=== PATIENT | male | born 1960 | race American Indian/Alaskan Native ===

== ENCOUNTER 2019-10-21 07:49 | Inpatient (IN) | payer OTHER ==
[2019-10-21 08:11] VITALS: BMI 20.6
--- NOTE | 2019-10-21 08:11 | PDOC ---
History of Present Illness - General Chief Complaint: Abnormal Lab Results (Outside) Stated Complaint: SENT BY PCP FOR ABDNORMAL LABS History Source: Patient, Old Records, Primary Care Provider Exam Limitations: No Limitations - History of Present Illness Initial Comments: 10/21/19 08:09 Sam Fay is a 59M with PMH ESRD sent to [facility] by Dr. Kan for hemodialysis planning. Got call from Dr. Kan this morning regarding patient. Has history of ESRD with worsening creatinine, eGFR 5, latest Cr 8.8. Sent to [facility] ED for worsening renal function and admission for Portacath placement/emergency dialysis. Dr. Kebede aware of patient, scheduled for placement later today. Patient denies any recent illness or other symptoms. No chest pain, SOB, cough, fever, chills, N/V, diarrhea, abd pain, SOB. Tolerating PO, vegetarian diet. Normal urine output. Meds: amlodipine 10mg, atenolol 25mg, calcitriol PSH: none Denies alcohol/drug/tobacco use. Past History - Medical History Allergies/Adverse Reactions: Allergies Allergy/AdvReac Type Severity Reaction Status Date / Time terazosin [From Hytrin] AdvReac Severe heart Verified 10/06/19 17:25 stopped Home Medications: Ambulatory Orders Amlodipine Besylate [Norvasc -] 1 tablet PO DAILY 10/06/19 Atenolol [Tenormin -] 25 mg PO DAILY 10/06/19 Calcium Acetate [Phoslo -] 1 cap PO BID 10/06/19 Sodium Bicarbonate - 1 tablet PO BID 10/06/19 Anemia: No Asthma: No Cancer: No Cardiac Disorders: No CVA: No COPD: No CHF: No Dementia: No Diabetes: No GI Disorders: No Disorders: No HTN: Yes Hypercholesterolemia: No Liver Disease: No Seizures: No Thyroid Disease: No Other medical history: renal problem - Surgical History Cholecystectomy: No Lung Surgery: No - Immunization History Immunization Up to Date: No - Psycho-Social/Smoking History Smoking History: Never smoked Have you smoked in the past 12 months: No Information on smoking cessation initiated: No - Substance Abuse Hx (Audit-C & DAST Scrn) How often the patient has a drink containing alcohol: Never Score: In Men: 4 or > Positive; In Women: 3 or > Positive: 0 Screen Result (Pos requires Nsg. Audit-10AR): Negative In the last yr the pt used illegal drug/Rx for NonMed reason: No Score: Yes response is considered Positive: 0 Screen Result (Positive result requires Nsg. DAST-10): Negative Review of Systems - Review of Systems Able to Perform ROS?: Yes Constitutional: No: Symptoms Reported HEENTM: No: Symptoms Reported Respiratory: No: Symptoms reported Cardiac (ROS): No: Symptoms Reported ABD/GI: No: Symptoms Reported : No: Symptoms Reported Musculoskeletal: No: Symptoms Reported Integumentary: No: Symptoms Reported Neurological: No: Symptoms reported Endocrine: No: Symptoms Reported Hematologic/Lymphatic: No: Symptoms Reported All Other Systems: Reviewed and Negative *Physical Exam - Vital Signs Last Vital Signs Temp Pulse Resp BP Pulse Ox 98.3 F 56 L 16 161/88 100 10/21/19 07:54 10/21/19 07:54 10/21/19 07:54 10/21/19 07:54 10/21/19 07:54 - Physical Exam General Appearance: Yes: Nourished, Appropriately Dressed, Thin, Other (in good spirits, in NAD). No: Apparent Distress HEENT: positive: EOMI, IZA, Normal Voice, Symmetrical, Pharynx Normal. negative: Scleral Icterus (R), Scleral Icterus (L), Pharyngeal Erythema, Tonsillar Exudate, Tonsillar Erythema Neck: positive: Trachea midline, Normal Thyroid, Supple. negative: Tender, Rigid, Lymphadenopathy (R), Lymphadenopathy (L), Tender lateral, Tender midline Respiratory/Chest: positive: Lungs Clear, Normal Breath Sounds. negative: Chest Tender, Respiratory Distress, Accessory Muscle Use, Crackles, Rales, Rhonchi, Stridor, Wheezing Cardiovascular: positive: Regular Rhythm, Regular Rate. negative: Murmur Gastrointestinal/Abdominal: positive: Normal Bowel Sounds, Flat, Soft. negative: Tender, Organomegaly, Pulsatile Mass, Guarding, Rebound Musculoskeletal: positive: Normal Inspection. negative: CVA Tenderness, Decreased Range of Motion Extremity: positive: Normal Capillary Refill, Normal Inspection, Normal Range of Motion, Pelvis Stable. negative: Tender, Pedal Edema, Swelling, Calf Tenderness Integumentary: positive: Normal Color, Dry, Warm Neurologic: positive: hygiene teacher II-XII NML intact, Fully Oriented, Alert, Normal Mood/Affect, Normal Response, Motor Strength 5/5 ED Treatment Course - LABORATORY CBC & Chemistry Diagram: 10/21/19 09:00 10/21/19 09:00 Medical Decision Making - Medical Decision Making 10/21/19 08:51 Patient has PMH ESRd with worsening Cr >8.8, HTN, here for Portacath placement and HD. Asymptomatic. VSS. Getting pre-op CBC/CMP/Coags/T&S/ECG/CXR for admission. Will correct electrolyte abnormalities PRN and admit for surgical planning. 10/21/19 08:54 CXR no gross pathology. ECG sinus bradycardia with HR 55, Qtc 403, no PAZ/D or TWI, no peaked T waves. 10/21/19 09:40 Labs notable for: - Hgb 8.7 with MCV 61, history ESRD, asymptomatic - Coags WNL - Cr 9.9, last known 8.8 10/21/19 10:29 Patient eligible for admission to Med/Surg, patient of Dr. Avila, admits to [facility] service. Calling office now. 10/21/19 11:28 Attending admitted patient to [facility] service. Dr. Kan placed orders and Kebede consult. Discharge - Discharge Information Problems reviewed: Yes Clinical Impression/Diagnosis: ESRD (end stage renal disease), Admission for dialysis and dialysis catheter care Condition: Good - Admission Yes - Follow up/Referral - Patient Discharge Instructions - Post Discharge Activity
--- NOTE | 2019-10-21 08:33 | PDOC ---
Attending Attestation - Resident Resident Name: Rock Freeman - ED Attending Attestation I have performed the following: I have examined & evaluated the patient, The case was reviewed & discussed with the resident, I agree w/resident's findings & plan, Exceptions are as noted - HPI HPI: 10/21/19 09:01 59y M hx of HTN, ESRD presents for hemodialysis - the patient is having worsening creatinine so was sent for evaluation and possible emergency dialysis and permcath placement- his creatinine has increased to 8.8. The patient deine sany complaints including leg swelling, sob, hernández, cp, n/v. Pt without complaint of dysuria. - Physicial Exam PE: 10/21/19 09:23 GENERAL: The patient is awake, alert, and fully oriented, Nontoxic - in no acute distress. HEAD: Normocephalic, atraumatic. EYES: extraocular movements intact, sclera anicteric, conjunctiva clear. ENT: Normal voice, Moist mucous membranes. NECK: Normal range of motion, supple LUNGS: Breath sounds equal, clear to auscultation bilaterally. No wheezes, no rhonchi, no rales. HEART: Regular rate and rhythm, normal S1 and S2 without murmur, rub or gallop. ABDOMEN: Soft, nontender, No guarding, no rebound. No CVA tenderness EXTREMITIES: Normal range of motion, no edema. NEUROLOGICAL: No facial assymetry, Normal speech, PSYCH: Normal mood, normal affect. SKIN: Warm, Dry, normal turgor, - Medical Decision Making 10/21/19 09:23 will ck labs, ekg likel admission 10/21/19 11:10 Patient's creatinine is elevated to 9.9 potassium is normal, discussed with Dr. Whitney Rivers will admit for further management. Case discussed in detail with admitting physician including history, physical exam and ancillary studies. Admitting physician has assumed care for the patient, will follow all pending di agnostics and will complete the evaluation and treatment. Heart Score/ECG Review - ECG Impressions Comment:: 10/21/19 09:24 Twelve-lead EKG was performed and reviewed by me. There is normal sinus rhythm with a Rate of 55 The axis is normal. The intervals are normal. There is normal R wave progression There are no ST or T wave abnormalities Suggestive of acute ischemia Discharge - Discharge Information Problems reviewed: Yes Clinical Impression/Diagnosis: ESRD (end stage renal disease), Admission for dialysis and dialysis catheter care Condition: Good - Admission Yes - Follow up/Referral Referrals: Corby Avila MD [Primary Care Provider] - - Patient Discharge Instructions - Post Discharge Activity
[2019-10-21 09:33] LABS: BASO % 0.9 % (0-2.0); EOS % 6.7 % (0-4.5); HEMATOCRIT 27.4 % (35.4-49); HEMOGLOBIN 8.7 GM/dL (11.7-16.9); LYMPH % 12.5 % (8-40); MCHC 31.6 g/dl (32.0-35.9); MEAN CELL VOLUME 61.4 fl (80-96); MEAN PLT VOLUME 8.4 fl (7.5-11.1); MONO % 8.9 % (3.8-10.2); PLATELET COUNT 196 K/MM3 (134-434); RBC 4.47 M/mm3 (4.00-5.60); RDW 15.4 % (11.9-15.9); WHITE BLOOD COUNT 8.4 K/mm3 (4.0-10.0)
[2019-10-21 09:36] LABS: MCH 19.4 pg (25.7-33.7)
[2019-10-21 09:58] LABS: MAGNESIUM 2.3 mg/dL (1.8-2.4); PHOSPHOROUS 4.2 mg/dL (2.5-4.9)
[2019-10-21 10:04] LABS: INR 0.9 (0.83-1.09); PROTHROMBIN TIME (PATIENT) 10.6 SEC (9.7-13.0)
[2019-10-21 10:05] LABS: ALBUMIN 4.2 g/dl (3.4-5.0); BILIRUBIN,TOTAL 0.5 mg/dL (0.2-1); BLOOD UREA NITROGEN 59.5 mg/dL (7-18); CALCIUM 9.4 mg/dL (8.5-10.1); POTASSIUM 4.7 mmol/L (3.5-5.1); TOT PROT 8.1 g/dl (6.4-8.2)
[2019-10-21 10:06] LABS: ACTIVATED PTT 24.3 SECONDS (25.2-36.5)
[2019-10-21 10:29] LABS: CREATININE 9.9 mg/dL (0.55-1.3)
[2019-10-21] MEDS ORDERED: SODIUM CHLORIDE 250 ML IV PRN ×3 (10:45→17:46)
[2019-10-21] MEDS ORDERED: EPOETIN ALFA 10,000 UNIT/1 ML VIAL IVPUSH ONE ×2 (10:45→16:55)
[2019-10-21 10:47] LABS: ANISOCYTOSIS 2+; PLATELET ESTIMATE NORMAL
--- NOTE | 2019-10-21 11:32 | HP ---
Admitting History and Physical - Primary Care Physician PCP: Corby Avila - Admission Chief Complaint: worsening renal function History of Present Illness: - History of Present Illness Initial Comments: 10/21/19 08:09 Sam Fay is a 59M with H ESRD sent to [facility] by Dr. Kan for hemodialysis planning. Got call from Dr. Kan this morning regarding patient. Has history of ESRD with worsening creatinine, eGFR 5, latest Cr 8.8. Sent to [facility] ED for worsening renal function and admission for Portacath placement/emergency dialysis. Dr. Kebede aware of patient, scheduled for placement later today. Patient denies any recent illness or other symptoms. No chest pain, SOB, cough, fever, chills, N/V, diarrhea, abd pain, SOB. Tolerating PO, vegetarian diet. Normal urine output. Meds: amlodipine 10mg, atenolol 25mg, calcitriol PSH: none Denies alcohol/drug/tobacco use. Pt examined by me in the ER at bedside Pt being followed by Dr Yogi Kan Nephrology for renal function Denies SOB, loss of appetite, fatigue He had chest pain on and off and was sent to do outpatient echo and stress test here at [facility] last week by his PMD History Source: Patient Limitations to Obtaining History: No Limitations - Past Medical History Cardiovascular: Yes: HTN Renal/: Yes: Renal Failure - Smoking History Smoking history: Never smoked Have you smoked in the past 12 months: No Home Medications - Allergies Allergies/Adverse Reactions: Allergies Allergy/AdvReac Type Severity Reaction Status Date / Time terazosin [From Hytrin] AdvReac Severe heart Verified 10/21/19 12:19 stopped - Home Medications Home Medications: Ambulatory Orders Amlodipine Besylate [Norvasc -] 1 tablet PO DAILY 10/06/19 Atenolol [Tenormin -] 25 mg PO DAILY 10/06/19 Calcium Acetate [Phoslo -] 1 cap PO BID 10/06/19 Sodium Bicarbonate - 1 tablet PO BID 10/06/19 Calcitriol [Rocaltrol -] 0.25 mcg PO DAILY 10/21/19 Sodium Polystyrene Sulfonate 454 gm PO ASDIR 10/21/19 Family Medical History Family History: Unremarkable Review of Systems - Review of Systems Constitutional: denies: Chills (-), Fever Cardiovascular: denies: Chest Pain, Edema, Palpitations, Shortness of Breath Gastrointestinal: denies: Abdominal Pain Physical Examination Vital Signs: Vital Signs Temperature 98.3 F 10/21/19 07:54 Pulse Rate 56 L 10/21/19 07:54 Respiratory Rate 16 10/21/19 07:54 Blood Pressure 161/88 10/21/19 07:54 O2 Sat by Pulse Oximetry (%) 100 10/21/19 07:54 Constitutional: Yes: No Distress, Calm Cardiovascular: Yes: Regular Rate and Rhythm Respiratory: Yes: CTA Bilaterally Gastrointestinal: Yes: Normal Bowel Sounds, Soft. No: Tenderness Edema: No Labs: CBC, BMP 10/21/19 09:00 10/21/19 09:00 Imaging - Results Chest X-ray: Image Reviewed (clear) Problem List - Problems (1) HTN (hypertension) Code(s): I10 - ESSENTIAL (PRIMARY) HYPERTENSION (2) Admission for dialysis and dialysis catheter care Code(s): Z99.2 - DEPENDENCE ON RENAL DIALYSIS (3) ESRD (end stage renal disease) Code(s): N18.6 - END STAGE RENAL DISEASE Assessment/Plan keep NPO Spoke with Vascular Stress test -- shows ST depressions Pt is assymptomatic Cardiology consulted I spoke with Cardiology-- ok to proceed with planned permacath placement and initiation of dialysis, may need cardiac cath in the near future
--- NOTE | 2019-10-21 13:36 | CONSULT ---
- Consultation REQUESTING PROVIDER: CONSULT REQUEST: We have been asked to surgically evaluate this patient for renal failure. PCP:Whitney Sanhcez HISTORY OF PRESENT ILLNESS: The patient is a 59 yo male who presented to the ER as per request from Dr. Lucius Calix for an elevation in his BUN/CRET. He denies any SOB. The patient was seen by Dr. Kebede in the office for the placement to schedule an elective placement of a fistula. His renal fnction worsened on repeat labs last week and he is here today for PC placement. The pt deneis any SOB/fevers. He did have an episode of non-sustained CP/ 1 and a half weeks ago and had a cardiac workup ordered by his PMD. A stress test and echo were completed last week at [facility]. PMHx: HTN, renal failure PSHx: denies Home Medications Medication Instructions Recorded Amlodipine Besylate [Norvasc -] 1 tablet PO DAILY 10/06/19 Atenolol [Tenormin -] 25 mg PO DAILY 10/06/19 Calcium Acetate [Phoslo -] 1 cap PO BID 10/06/19 Sodium Bicarbonate - 1 tablet PO BID 10/06/19 Calcitriol [Rocaltrol -] 0.25 mcg PO DAILY 10/21/19 Sodium Polystyrene Sulfonate 454 gm PO ASDIR 10/21/19 Allergies Allergy/AdvReac Type Severity Reaction Status Date / Time terazosin [From Hytrin] AdvReac Severe heart Verified 10/21/19 12:19 stopped REVIEW OF SYSTEMS: CONSTITUTIONAL: Absent: fever, chills CARDIOVASCULAR: Absent: chest pain, syncope, palpitations RESPIRATORY: Absent: cough, shortness of breath GASTROINTESTINAL: Absent: abdominal pain, abdominal distension GENITOURINARY: Absent: dysuria, hematuria HEMATOLOGIC/IMMUNOLOGIC: Absent: easy bleeding, easy bruising, lymphadenopathy NEUROLOGIC: Absent: headache, seizure PHYSICAL EXAM: GENERAL: Awake, alert, and fully oriented, in no acute distress. NECK: no carotid buits LUNGS: Clear to auscultation bilat anteriorly. HEART: Regular rate and rhythm. No murmurs ABDOMEN: Soft, nontender, not distended. LOWER EXTREMITIES: 2+DP pulses, warm, well-perfused. No calf tenderness. No peripheral edema. NEUROLOGICAL: Normal speech, gait not observed. 5/5 dorsi/plantar flexion b/l. Photography Intern strength equal b/l PSYCH: Cooperative. Good eye contact. Appropriate mood and affect. Vital Signs Temperature 98.3 F 10/21/19 07:54 Pulse Rate 56 L 10/21/19 07:54 Respiratory Rate 16 10/21/19 07:54 Blood Pressure 161/88 10/21/19 07:54 O2 Sat by Pulse Oximetry (%) 100 10/21/19 07:54 Lab Results WBC 8.4 K/mm3 (4.0-10.0) 10/21/19 09:00 RBC 4.47 M/mm3 (4.00-5.60) 10/21/19 09:00 Hgb 8.7 GM/dL (11.7-16.9) L 10/21/19 09:00 Hct 27.4 % (35.4-49) L 10/21/19 09:00 MCV 61.4 fl (80-96) L 10/21/19 09:00 MCHC 31.6 g/dl (32.0-35.9) L 10/21/19 09:00 RDW 15.4 % (11.9-15.9) 10/21/19 09:00 Plt Count 196 K/MM3 (134-434) 10/21/19 09:00 INR 0.90 (0.83-1.09) 10/21/19 09:00 Sodium 131 mmol/L (136-145) L 10/21/19 09:00 Potassium 4.7 mmol/L (3.5-5.1) 10/21/19 09:00 Chloride 95 mmol/L (98-107) L 10/21/19 09:00 Carbon Dioxide 24 mmol/L (21-32) 10/21/19 09:00 Anion Gap 12 MMOL/L (8-16) 10/21/19 09:00 BUN 59.5 mg/dL (7-18) H 10/21/19 09:00 Creatinine 9.9 mg/dL (0.55-1.3) H* 10/21/19 09:00 Random Glucose 89 mg/dL (74-106) 10/21/19 09:00 Calcium 9.4 mg/dL (8.5-10.1) 10/21/19 09:00 Blood Type B POSITIVE 10/21/19 09:05 Antibody Screen Negative 10/21/19 09:05 CXR: no acute pathology Problem List - Problems (1) ESRD (end stage renal disease) Assessment/Plan: Plan for possible PC today, pt remains npo Spoke with Dr. Whitney Rivers regarding clearance for the OR today. He had a stress test last week which revealed normal myocardial perfusion with LVEF 70- %exercise portion with ischemic ST depression. Dr. Engel to see pt/review studies and clear pt for permacath placement today. D/w Dr. Kebede Problems reviewed: Yes Code(s): N18.6 - END STAGE RENAL DISEASE
[2019-10-21] MEDS ORDERED: LIDOCAINE HCL 1%, 10 MG/ML (20ML VIAL) ONE (14:48)
[2019-10-21] MEDS ORDERED: PROPOFOL 20 ML ONE (15:01)
[2019-10-21] MEDS ORDERED: MIDAZOLAM HCL 2 MG/2 ML SINGLE DOSE VIAL ONE (15:01)
--- NOTE | 2019-10-21 15:02 | CON.CARD ---
Consult Consult Specialty:: cardiology Reason for Consultation:: + stress test - History of Present Illness History of Present Illness: Mr. Alex is a 59yo man with PMhx of HTN, ESRD, ECHO 08/29 with normal LVEF, moderate MR and TR, now presents for hemodialysis - the patient is having worsening creatinine so was sent for evaluation and possible emergency dialysis and permcath placement- his creatinine has increased to 8.8. The patient deines any complaints including leg swelling, sob, hernández, cp, n/v. Pt without complaint of dysuria. - History Source History Provided By: Medical Record Limitations to Obtaining History: No Limitations - Past Medical History Cardio/Vascular: Yes: CHF (diastolic), HTN - Smoking History Smoking history: Never smoked Have you smoked in the past 12 months: No Home Medications - Allergies Allergies/Adverse Reactions: Allergies Allergy/AdvReac Type Severity Reaction Status Date / Time terazosin [From Hytrin] AdvReac Severe heart Verified 10/21/19 12:19 stopped - Home Medications Home Medications: Ambulatory Orders Amlodipine Besylate [Norvasc -] 1 tablet PO DAILY 10/06/19 Atenolol [Tenormin -] 25 mg PO DAILY 10/06/19 Calcium Acetate [Phoslo -] 1 cap PO BID 10/06/19 Sodium Bicarbonate - 1 tablet PO BID 10/06/19 Calcitriol [Rocaltrol -] 0.25 mcg PO DAILY 10/21/19 Sodium Polystyrene Sulfonate 454 gm PO ASDIR 10/21/19 - Risk Factors Known Risk Factors: Yes: Age, Gender, Hypertension Vital Signs: Vital Signs Temperature 98.3 F 10/21/19 07:54 Pulse Rate 56 L 10/21/19 07:54 Respiratory Rate 16 10/21/19 07:54 Blood Pressure 161/88 10/21/19 07:54 O2 Sat by Pulse Oximetry (%) 100 10/21/19 07:54 - Other Data Labs, Other Data: CBC, BMP 10/21/19 09:00 10/21/19 09:00 INR, PTT INR 0.90 (0.83-1.09) 10/21/19 09:00 Assessment/Plan ESRD HTN microcytic anemia ECHO: normal LVEF; mild-moderate MR and TR Plan: Pt with Lexiscan MIBI 08/2019: mild ST depression; nuclear images showed normal perfusion, and no transient dilatation. Pt may undergo Permacath placement. F/u Lipids, TSH. ASA 81 mg daily. Continue atenolol, amlodipine, Imdur. Serial BP checks. COVID pending.
[2019-10-21] MEDS ORDERED: ceFAZolin SODIUM 1 GM VIAL IVPB ONE (15:40)
[2019-10-21] MEDS ORDERED: ceFAZolin SODIUM 1 GM VIAL ONE (15:42)
[2019-10-21] MEDS ORDERED: LIDOCAINE HCL 1%, 10 MG/ML (20ML VIAL) NR ONE (15:46)
--- NOTE | 2019-10-21 16:08 | OP ---
Operative Note - Note: Operative Date: 10/21/19 Pre-Operative Diagnosis: ESRD Operation: Insertion of permacath Post-Operative Diagnosis: Same as Pre-op Surgeon: Aaron Kebede Anesthesia: MAC Estimated Blood Loss (mls): 20 Operative Report Dictated: Yes
[2019-10-21] MEDS ORDERED: CALCIUM ACETATE 667 MG CAPSULE (FP) PO SCH (17:30)
--- NOTE | 2019-10-21 17:45 | CON.NEP ---
Consult Consult Specialty:: Nephrology Referred by:: ED Reason for Consultation:: Progressie CKD - History of Present Illness Chief Complaint: Worsening renal function History of Present Illness: This is a 59 year old [place] male with history of CKD stage 5, hypertension, DM2 not currently on meds, CKD related Anemia, hyperkalemia who I sent in from the office for worsening renal function and the need to start dialysis. Pt seen and examined in the PACU after tunneled HD catheter placement. Pt is awake and alert and offers no acute complaints. Pt did have fatigue and mild anxorexia at home. No N/V/D. Still making urine. Outpatient Cr was 8.8, and eGFR 5.5. Denies any sob, cp, fever, chills, confusion or lethargy. - History Source History Provided By: Patient Limitations to Obtaining History: No Limitations - Past Medical History Cardio/Vascular: Yes: HTN Renal/: Yes: Renal Failure - Smoking History Smoking history: Never smoked Have you smoked in the past 12 months: No Home Medications - Allergies Allergies/Adverse Reactions: Allergies Allergy/AdvReac Type Severity Reaction Status Date / Time terazosin [From Hytrin] AdvReac Severe heart Verified 10/21/19 12:19 stopped - Home Medications Home Medications: Ambulatory Orders Amlodipine Besylate [Norvasc -] 1 tablet PO DAILY 10/06/19 Atenolol [Tenormin -] 25 mg PO DAILY 10/06/19 Calcium Acetate [Phoslo -] 1 cap PO BID 10/06/19 Sodium Bicarbonate - 1 tablet PO BID 10/06/19 Calcitriol [Rocaltrol -] 0.25 mcg PO DAILY 10/21/19 Sodium Polystyrene Sulfonate 454 gm PO ASDIR 10/21/19 Family Medical History Family History: Unremarkable Review of Systems - Review of Systems Constitutional: reports: No Symptoms Eyes: reports: No Symptoms HENT: reports: No Symptoms Neck: reports: No Symptoms Cardiovascular: reports: No Symptoms Respiratory: reports: No Symptoms Gastrointestinal: reports: No Symptoms Genitourinary: reports: No Symptoms Musculoskeletal: reports: No Symptoms Neurological: reports: No Symptoms Endocrine: reports: No Symptoms Nephrology Consult - Height Height: 5 ft 5 in - Weight Weight: 56.245 kg - BMI Body Mass Index (BMI): 20.6 - Lab Results CBC,BMP: CBC, BMP 10/21/19 09:00 08/11/20 09:00 Anion Gap: Anion Gap Anion Gap 12 MMOL/L (8-16) 10/21/19 09:00 - Imaging Chest X-ray: Report Reviewed - Physical Examination Vital Signs: Vital Signs Temperature 98.5 F 10/21/19 16:07 Pulse Rate 52 L 10/21/19 17:00 Respiratory Rate 12 10/21/19 17:00 Blood Pressure 141/80 10/21/19 17:00 O2 Sat by Pulse Oximetry (%) 99 10/21/19 17:00 Constitutional: Yes: No Distress, Calm Eyes: Yes: Conjunctiva Clear HENT: Yes: Atraumatic Neck: Yes: Supple Cardiovascular: Yes: Regular Rate and Rhythm Respiratory: Yes: Regular, CTA Bilaterally Gastrointestinal: Yes: Soft. No: Tenderness Access for Hemodialysis: Permacath Extremities: No: Cool, Cyanosis Edema: No Neurological: Yes: Alert, Oriented. No: Asterixis Assessment/Plan 59 year old [place] male with history of CKD stage 5, hypertension, DM2 not currently on meds, CKD related Anemia, hyperkalemia who I sent in from the office for worsening renal function and the need to start dialysis. 1. CKD stage 5 now ESRD requiring dialysis 2. Hypertension 3. CKD related Anemia 4. Renal Osteodystrophy 5. Chronic hyperkalemia on potassium binding resin at home 6. Hx of DM2 not on meds currently s/p tunneled HD catheter placement. The risks and benefits of dialysis discussed with the patient and pt is agreeable to start dialysis. Will have first dialysis treatment today for 2 hours duration. 2nd tx is planned for tomorrow. Renal diet. 1.2L fluid restriction daily. Continue Calcitrol and renvela. Will give HOLDEN with dialysis for anemia Will need outpatient HD unit placement. Thank you Yogi Kan DO
[2019-10-21] MEDS: CALCIUM ACETATE 667 MG CAPSULE (FP) PO SCH (20:32)
[2019-10-21] MEDS ORDERED: SIMETHICONE 80 MG TAB.CHEW (FP) PO PRN (20:46)
[2019-10-21] MEDS: SODIUM BICARBONATE 650 MG TABLET PO SCH (21:15)
[2019-10-21] MEDS ORDERED: SODIUM BICARBONATE 650 MG TABLET PO SCH (22:00)
[2019-10-21] MEDS: ACETAMINOPHEN 500 MG TABLET (FP) PO PRN (23:55)
--- NOTE | 2019-10-22 08:06 | PN ---
Progress Note (short form) - Note Progress Note: VASCULAR SURGERY POD #1 s/p Permacath Insertion Doing well. No complaints. Denies CP, palpitations, SOB or MORALES. AVSS. Afebrile. Gen: nad Chest: Permacath dressing c/d/i. No hematoma. A/P HD per pt's schedule. Cont care as per primary team. Rec-consult surgery prn On behalf of Dr. Kebede, thank you for the opportunity to participate in your patient's care Problem List - Problems (1) Admission for dialysis and dialysis catheter care Code(s): Z99.2 - DEPENDENCE ON RENAL DIALYSIS (2) ESRD (end stage renal disease) Code(s): N18.6 - END STAGE RENAL DISEASE (3) HTN (hypertension) Code(s): I10 - ESSENTIAL (PRIMARY) HYPERTENSION
[2019-10-22] MEDS ORDERED: PT OWN MED DRAWER 7, Y5N ONE (09:13)
[2019-10-22] MEDS: CALCIUM ACETATE 667 MG CAPSULE (FP) PO SCH ×3 (09:20→17:21)
[2019-10-22] MEDS: ACETAMINOPHEN 500 MG TABLET (FP) PO PRN (09:21)
[2019-10-22] MEDS ORDERED: ATENOLOL 25 MG TABLET (FP) PO SCH (10:00)
[2019-10-22] MEDS ORDERED: ISOSORBIDE MONONITRATE 30 MG TAB.SR.24H (FP) PO SCH (10:00)
[2019-10-22] MEDS ORDERED: amLODIPine BESYLATE 10 MG TABLET (FP) PO SCH (10:00)
--- NOTE | 2019-10-22 10:46 | PN ---
Progress Note, Physician History of Present Illness: Mr. Alex is a 59yo man with PMhx of HTN, ESRD, ECHO 08/29 with normal LVEF, moderate MR and TR, now presents for hemodialysis - the patient is having worsening creatinine so was sent for evaluation and possible emergency dialysis and permcath placement- his creatinine has increased to 8.8. The patient deines any complaints including leg swelling, sob, hernández, cp, n/v. Pt without complaint of dysuria. - Current Medication List Current Medications: Active Medications Acetaminophen (Tylenol -) 1,000 mg PO Q8H PRN PRN Reason: PAIN LEVEL 4 - 6 Last Admin: 10/22/19 09:21 Dose: 1,000 mg Documented by: Amlodipine Besylate (Norvasc -) 10 mg PO DAILY [facility] Atenolol (Tenormin -) 25 mg PO DAILY [facility] Calcium Acetate (Phoslo -) 667 mg PO TIDCM [facility] Last Admin: 10/22/19 09:20 Dose: 667 mg Documented by: Sodium Chloride (Normal Saline -) 250 mls @ 3,000 mls/hr IV PRN PRN PRN Reason: Hypotension during Dialysis Stop: 10/22/19 17:46 Isosorbide Mononitrate (Imdur -) 30 mg PO DAILY [facility] Simethicone (Mylicon -) 80 mg PO TID PRN PRN Reason: GAS Last Admin: 10/22/19 09:20 Dose: 80 mg Documented by: Sodium Bicarbonate (Sodium Bicarbonate -) 650 mg PO BID [facility] Last Admin: 10/21/19 21:15 Dose: 650 mg Documented by: - Objective Vital Signs: Vital Signs Temperature 98.8 F 10/22/19 09:45 Pulse Rate 54 L 10/22/19 10:20 Respiratory Rate 18 10/22/19 10:20 Blood Pressure 135/78 10/22/19 10:20 O2 Sat by Pulse Oximetry (%) 99 10/22/19 06:42 Eyes: Yes: WNL, Conjunctiva Clear, EOM Intact HENT: Yes: WNL, Atraumatic, Normocephalic Neck: Yes: WNL, Supple, Trachea Midline Cardiovascular: Yes: WNL, Regular Rate and Rhythm Respiratory: Yes: WNL, Regular, CTA Bilaterally Gastrointestinal: Yes: WNL, Normal Bowel Sounds Genitourinary: Yes: WNL Musculoskeletal: Yes: WNL Extremities: Yes: WNL Edema: No Integumentary: Yes: WNL Neurological: Yes: WNL, Alert, Oriented ...Motor Strength: WNL Psychiatric: Yes: WNL Labs: INR, PTT INR 0.90 (0.83-1.09) 10/21/19 09:00 Assessment/Plan ESRD Stable s/p permacath placement. HTN microcytic anemia ECHO: normal LVEF; mild-moderate MR and TR Plan: Pt with Lexiscan MIBI 08/2019: mild ST depression; nuclear images showed normal perfusion, and no transient dilatation. F/u Lipids, TSH. ASA 81 mg daily. Continue atenolol, amlodipine, Imdur. Serial BP checks. COVID pending.
[2019-10-22 10:47] LABS: HEMATOCRIT 24.8 % (35.4-49); HEMOGLOBIN 7.7 GM/dL (11.7-16.9); MEAN CELL VOLUME 63.2 fl (80-96); MEAN PLT VOLUME 9.1 fl (7.5-11.1); PLATELET COUNT 130 K/MM3 (134-434); RBC 3.93 M/mm3 (4.00-5.60); RDW 15.5 % (11.9-15.9); WHITE BLOOD COUNT 12.7 K/mm3 (4.0-10.0)
--- NOTE | 2019-10-22 10:52 | PN ---
Problem List - Problems (1) HTN (hypertension) Code(s): I10 - ESSENTIAL (PRIMARY) HYPERTENSION (2) Admission for dialysis and dialysis catheter care Code(s): Z99.2 - DEPENDENCE ON RENAL DIALYSIS (3) ESRD (end stage renal disease) Code(s): N18.6 - END STAGE RENAL DISEASE
[2019-10-22 11:10] LABS: MCH 19.6 pg (25.7-33.7)
[2019-10-22 11:14] LABS: CALCIUM 8.1 mg/dL (8.5-10.1); CREATININE 6.9 mg/dL (0.55-1.3); PHOSPHOROUS 2.7 mg/dL (2.5-4.9); POTASSIUM 3.7 mmol/L (3.5-5.1)
[2019-10-22 11:48] LABS: BLOOD UREA NITROGEN 32.2 mg/dL (7-18)
--- NOTE | 2019-10-22 12:28 | PN ---
Progress Note, Physician Chief Complaint: Worsening renal function History of Present Illness: Seen and examined on dialysis. Awake and alert offers no acute complaints. has some ozzing from [facility] site overnight no chest pain, abdominal pain, fever or chills - Current Medication List Current Medications: Active Medications Acetaminophen (Tylenol -) 1,000 mg PO Q8H PRN PRN Reason: PAIN LEVEL 4 - 6 Last Admin: 10/22/19 09:21 Dose: 1,000 mg Documented by: Amlodipine Besylate (Norvasc -) 10 mg PO DAILY [facility] Atenolol (Tenormin -) 25 mg PO DAILY [facility] Calcium Acetate (Phoslo -) 667 mg PO TIDCM [facility] Last Admin: 10/22/19 09:20 Dose: 667 mg Documented by: Sodium Chloride (Normal Saline -) 250 mls @ 3,000 mls/hr IV PRN PRN PRN Reason: Hypotension during Dialysis Stop: 10/22/19 17:46 Isosorbide Mononitrate (Imdur -) 30 mg PO DAILY [facility] Simethicone (Mylicon -) 80 mg PO TID PRN PRN Reason: GAS Last Admin: 10/22/19 09:20 Dose: 80 mg Documented by: Sodium Bicarbonate (Sodium Bicarbonate -) 650 mg PO BID [facility] Last Admin: 10/21/19 21:15 Dose: 650 mg Documented by: - Objective Vital Signs: Vital Signs Temperature 98.8 F 10/22/19 09:45 Pulse Rate 62 10/22/19 11:50 Respiratory Rate 18 10/22/19 11:50 Blood Pressure 138/84 10/22/19 11:50 O2 Sat by Pulse Oximetry (%) 99 10/22/19 06:42 Constitutional: Yes: No Distress, Calm HENT: Yes: Atraumatic Neck: Yes: Supple Cardiovascular: Yes: Regular Rate and Rhythm Respiratory: Yes: Regular Genitourinary: No: Bladder Distention Extremities: No: Cyanosis Edema: No Labs: CBC, BMP 10/22/19 09:50 10/22/19 09:50 INR, PTT INR 0.90 (0.83-1.09) 10/21/19 09:00 Assessment/Plan 59 year old [place] male with history of CKD stage 5, hypertension, DM2 not currently on meds, CKD related Anemia, hyperkalemia who I sent in from the office for worsening renal function and the need to start dialysis. 1. CKD stage 5 now ESRD requiring dialysis 2. Hypertension 3. CKD related Anemia 4. Renal Osteodystrophy 5. Chronic hyperkalemia on potassium binding resin at home 6. Hx of DM2 not on meds currently Tolerated dialysis well yesterday and is currently getting his 2nd tx. Clinically stable. Will give HOLDEN with dialysis for anemia. Continue Calcitriol and phos binder with meals. Continue amlodipine and atenolol for now, once pt is on regular 3x weekly dialysis can start KAITY/ARB can discontinue potassium binder at home. Renal diet. Pt has outpatient spot at [facility]. Awaiting insurance confirmation. Thank you Yogi Kan DO
[2019-10-22] MEDS: ATENOLOL 25 MG TABLET (FP) PO SCH (13:02)
[2019-10-22] MEDS: SODIUM BICARBONATE 650 MG TABLET PO SCH ×2 (13:02→21:10)
[2019-10-22] MEDS: amLODIPine BESYLATE 10 MG TABLET (FP) PO SCH (13:02)
[2019-10-22] MEDS: ISOSORBIDE MONONITRATE 30 MG TAB.SR.24H (FP) PO SCH (13:02)
--- NOTE | 2019-10-22 13:16 | EKG ---
Test Reason : Blood Pressure : / mmHG Vent. Rate : 055 BPM Atrial Rate : 055 BPM P-R Int : 134 ms QRS Dur : 090 ms QT Int : 422 ms P-R-T Axes : 045 034 042 degrees QTc Int : 403 ms SINUS BRADYCARDIA VOLTAGE CRITERIA FOR LEFT VENTRICULAR HYPERTROPHY ABNORMAL ECG NO PREVIOUS ECGS AVAILABLE Confirmed by MD JOSH, MORELIA ([id number]) on 10/22/2019 1:16:32 PM Referred By: Confirmed By:MORELIA MORENO MD
--- NOTE | 2019-10-22 14:02 | OP ---
DATE OF OPERATION: 10/21/2019 PREOPERATIVE DIAGNOSIS: End-stage renal disease. POSTOPERATIVE DIAGNOSIS: End-stage renal disease. PROCEDURE: Insertion of permacath. SURGEON: Aaron Granados DO ANESTHESIA: Fractional. BLOOD LOSS: 20 mL. The patient is a 59-year-old male who comes in through the emergency room due to the fact that his renal function was worsening and needs initiation of dialysis and he needs a permacath. The patient was consented for the procedure, understanding all risks, benefits, and alternatives. He was then taken to the operating room. Once in the operating room, he was placed on operating table in supine manner, and the area of the right neck and chest were prepped and draped in sterile surgical manner. Prior to the procedure, patient was cleared by Cardiology and the COVID status was pending. We then went ahead and using ultrasound guidance, visualized the right internal jugular vein, and 10 mL of lidocaine 1% was injected there under ultrasound guidance. We then took our micropuncture needle and punctured the right internal jugular vein. Micropuncture wire was inserted, micropuncture sheath was inserted under fluoroscopy. We then placed a 0.035 floppy guidewire under fluoroscopy. We then injected 10 mL of lidocaine 1% above and below the clavicle. We then took an 11 blade and made a 1 cm incision at the puncture site. We then took a 15 blade and made a 1 cm incision below the clavicle. We then tunneled the permacath up to the puncture site. We then placed our breakaway sheath over the guidewire into the vein under fluoroscopy, and the cannula and guidewire were removed. Catheter was placed inside the sheath, sheath was broken away as the catheter was placed inside the vein. The neck of the catheter was nice and smooth. The tip of the catheter was located outside the right atrium. We then richelle back on each port of the catheter, and there was good flow. Heparinized saline was injected, 2000 units of IV heparin was injected into each port. A 4-0 Biosyn was used and 2 simple stitches were placed at the puncture site, 3-0 nylon used and the catheter was attached to the skin. BioPatch, Steri-Strips, 4x4, Tegaderm were placed. Patient tolerated this procedure, no complications. Patient transferred to PACU in stable condition. AARON GRANADOS DO [employer] OPERATOR/[id number]
[2019-10-23] MEDS: CALCIUM ACETATE 667 MG CAPSULE (FP) PO SCH ×2 (08:32→12:07)
[2019-10-23] MEDS ORDERED: PT OWN MED DRAWER 7, Y5N ONE (08:55)
[2019-10-23] MEDS: SODIUM BICARBONATE 650 MG TABLET PO SCH (09:21)
[2019-10-23] MEDS: ISOSORBIDE MONONITRATE 30 MG TAB.SR.24H (FP) PO SCH (09:21)
[2019-10-23] MEDS: ATENOLOL 25 MG TABLET (FP) PO SCH (09:21)
[2019-10-23] MEDS: amLODIPine BESYLATE 10 MG TABLET (FP) PO SCH (09:21)
--- NOTE | 2019-10-23 11:36 | DS ---
Physical Examination Vital Signs: Vital Signs Temperature 98.9 F 10/23/19 06:00 Pulse Rate 56 L 10/23/19 06:00 Respiratory Rate 20 10/23/19 09:00 Blood Pressure 150/86 10/23/19 06:00 O2 Sat by Pulse Oximetry (%) 95 10/23/19 09:00 Constitutional: Yes: No Distress, Calm Cardiovascular: Yes: Regular Rate and Rhythm Respiratory: Yes: CTA Bilaterally Gastrointestinal: Yes: Normal Bowel Sounds, Soft. No: Tenderness Edema: No Labs: CBC, BMP 10/22/19 09:50 10/22/19 09:50 Discharge Summary Problems reviewed: Yes Reason For Visit: ENCOUNTER FOR HEMODIALYSIS,ESRD Current Active Problems Admission for dialysis and dialysis catheter care (Acute) ESRD (end stage renal disease) (Acute) HTN (hypertension) (Acute) Hospital Course: Pt admitted for worsening renal function No SOB he has weight loss for one month , decreased appetite COVID negative Pt was dialysed after placing permacath he is new to dialysis Will be dialysed Sun- Sun- Sun stable for dc home Needs GI eval as outpatient Condition: Good - Instructions Diet, Activity, Other Instructions: stop polysterene powder and isosorbide mononitrate continue amlodipine, atenolol, phoslo, calcitriol drink Nepro daily Referrals: Corby Avila MD [Primary Care Provider] - Yogi Kan MD [Staff Physician] - Disposition: HOME - Home Medications Comprehensive Discharge Medication List: Ambulatory Orders Amlodipine Besylate [Norvasc -] 10 mg PO DAILY 10/06/19 Atenolol [Tenormin -] 25 mg PO DAILY 10/06/19 Sodium Bicarbonate - 1 tablet PO BID 10/06/19 Calcitriol [Calcitriol -] 0.25 mcg PO DAILY 10/21/19
[2019-10-23] MEDS ORDERED: CALCIUM ACETATE 667 MG CAPSULE (FP) PO ONE (12:45)
--- NOTE | 2019-10-23 13:32 | PN ---
Progress Note, Physician Chief Complaint: Worsening renal function History of Present Illness: Seen and examined on dialysis. Awake and alert, offers no acute complaints. Completed his second dialysis session without complication yesterday in the hospital. He denies any Leg swelling, shortness of breath, chest pain, abdominal pain, nausea, vomiting. For discharge today - Current Medication List Current Medications: Active Medications Acetaminophen (Tylenol -) 1,000 mg PO Q8H PRN PRN Reason: PAIN LEVEL 4 - 6 Last Admin: 10/22/19 09:21 Dose: 1,000 mg Documented by: Amlodipine Besylate (Norvasc -) 10 mg PO DAILY [facility] Last Admin: 10/23/19 09:21 Dose: 10 mg Documented by: Atenolol (Tenormin -) 25 mg PO DAILY [facility] Last Admin: 10/23/19 09:21 Dose: 25 mg Documented by: Sodium Chloride (Normal Saline -) 250 mls @ 3,000 mls/hr IV PRN PRN PRN Reason: Hypotension during Dialysis Stop: 10/22/19 17:46 Simethicone (Mylicon -) 80 mg PO TID PRN PRN Reason: GAS Last Admin: 10/22/19 09:20 Dose: 80 mg Documented by: - Objective Vital Signs: Vital Signs Temperature 98.9 F 10/23/19 06:00 Pulse Rate 56 L 10/23/19 06:00 Respiratory Rate 20 10/23/19 09:00 Blood Pressure 150/86 10/23/19 06:00 O2 Sat by Pulse Oximetry (%) 95 10/23/19 09:00 Constitutional: Yes: No Distress, Calm HENT: Yes: Atraumatic Neck: Yes: Supple Cardiovascular: Yes: Regular Rate and Rhythm Respiratory: Yes: Regular, CTA Bilaterally Gastrointestinal: Yes: Soft Edema: No Neurological: Yes: Alert, Oriented Labs: CBC, BMP 10/22/19 09:50 10/22/19 09:50 INR, PTT INR 0.90 (0.83-1.09) 10/21/19 09:00 Assessment/Plan 59 year old [place] male with history of CKD stage 5, hypertension, DM2 not currently on meds, CKD related Anemia, hyperkalemia who I sent in from the office for worsening renal function and the need to start dialysis. 1. CKD stage 5 now ESRD requiring dialysis 2. Hypertension 3. CKD related Anemia 4. Renal Osteodystrophy 5. Chronic hyperkalemia on potassium binding resin at home 6. Hx of DM2 not on meds currently Patient tolerated dialysis as an inpatient. Currently hemodynamic stable without overt signs of uremia. We will continue dialysis 3 times weekly an outpatient. Patient dialysis chair procured at [facility]. We will continue HOLDEN and iron with dialysis for anemia management. Hyperphosphatemia is improved status post dialysis will hold phosphate binder. His discussed with cardiology patient does not require him to her can discontinue that as well. Continue amlodipine and, for hypertension, will ideally benefit from being on KAITY or ARB once he is receiving regular dialysis. Can discontinue Kayexalate. Discharge as per primary team. Thank you Yogi Kan DO
[2019-10-23 14:40] VITALS: BP 137/82; PULSE 64; TEMP 99.2
[2019-10-23 23:06] LABS: HEP B CORE AB, TOT Negative (Negative)
== END 2019-10-23 15:02 | disposition home or self-care (01) | DRG 194 ==
LOC: JER 07:49 → JERBED 08:34 → J8W 20:13
PROVIDERS: ADMIT Internal Medicine; ATTEND Internal Medicine
PROC: B513ZZA Fluoroscopy of Right Jugular Veins, Guidance (ICD-10-PCS; 2019-10-21)
PROC: 5A1D70Z Performance of Urinary Filtration, Intermittent, Less than 6 Hours Per Day (ICD-10-PCS; 2019-10-21)
PROC: 05HM33Z Insertion of Infusion Device into Right Internal Jugular Vein, Percutaneous Approach (ICD-10-PCS; principal; 2019-10-21 14:30)
PROC: 5A1D70Z Performance of Urinary Filtration, Intermittent, Less than 6 Hours Per Day (ICD-10-PCS; 2019-10-22)
DX: I13.2 Hypertensive heart and chronic kidney disease with heart failure and with stage 5 chronic kidney disease, or end stage renal disease (principal); I50.32 Chronic diastolic (congestive) heart failure; E11.22 Type 2 diabetes mellitus with diabetic chronic kidney disease; N18.6 End stage renal disease; Z99.2 Dependence on renal dialysis; D63.8 Anemia in other chronic diseases classified elsewhere; E87.5 Hyperkalemia; R63.0 Anorexia; E83.39 Other disorders of phosphorus metabolism; I08.1 Rheumatic disorders of both mitral and tricuspid valves; N25.0 Renal osteodystrophy; R63.4 Abnormal weight loss; Z68.20 Body mass index [BMI] 20.0-20.9, adult
CPT/HCPCS: 36415; 71045-TC-FY; 80048; 80053; 83735; 84100; 85025; 85027; 85610; 85730; 86704; 86706; 86707; 86708; 86709; 86803; 86850; 86900; 86901; 87340; 93005; 93010; 94760; 99285-25; J0885; J1644; U0003

== ENCOUNTER 2019-12-03 16:49 | Emergency (ER) | payer OTHER ==
[2019-12-03 16:52] VITALS: BMI 21.7
--- NOTE | 2019-12-03 17:13 | PDOC ---
History of Present Illness - General Chief Complaint: SIRS, Suspected/Possible Stated Complaint: FEVER Time Seen by Provider: 12/03/19 17:09 - History of Present Illness Initial Comments: 12/03/19 19:10 59yo M w/ h/o ESRD, on dialysis but missed today, and HTN p/w fever and tachycardia that started at noon. He felt chills but no other sx. He took a tylenol to break the fever and called the PCP. PCP told him to take another tyl enol and go to ED to get evaluated. He presents febrile and tachycardic but in no distress. Denies recent illness, cough, sore throat, malaise. Denies CP, SOB, n/v/d, diaphoresis. Denies recent travel or sick contacts 12/03/19 19:10 Past History - Medical History Allergies/Adverse Reactions: Allergies Allergy/AdvReac Type Severity Reaction Status Date / Time terazosin [From Hytrin] AdvReac Severe heart Verified 10/21/19 12:19 stopped Home Medications: Ambulatory Orders Amlodipine Besylate [Norvasc -] 10 mg PO DAILY 10/06/19 Folic Acid/Vit B Complex and C [Dialyvite Tablet] 1 each PO DAILY 12/03/19 Anemia: No Asthma: No Cancer: No Cardiac Disorders: No CVA: No COPD: No CHF: No Dementia: No Diabetes: No GI Disorders: No Disorders: No HTN: Yes Hypercholesterolemia: No Liver Disease: No Seizures: No Thyroid Disease: No Other medical history: ESRD- LT.PERMA CATH - Surgical History Cholecystectomy: No Lung Surgery: No - Immunization History Immunization Up to Date: No - Psycho-Social/Smoking History Smoking History: Never smoked Have you smoked in the past 12 months: No Information on smoking cessation initiated: No - Substance Abuse Hx (Audit-C & DAST Scrn) How often the patient has a drink containing alcohol: Never Score: In Men: 4 or > Positive; In Women: 3 or > Positive: 0 Screen Result (Pos requires Nsg. Audit-10AR): Negative In the last yr the pt used illegal drug/Rx for NonMed reason: No Score: Yes response is considered Positive: 0 Screen Result (Positive result requires Nsg. DAST-10): Negative Review of Systems - Review of Systems Able to Perform ROS?: Yes Is the patient limited Icelandic proficient: No Constitutional: Yes: Chills. No: Diaphoresis, Fever, Weakness HEENTM: No: Blurred Vision, Recent change in vision Respiratory: Yes: Wheezing. No: Cough, Shortness of Breath, SOB with Exertion, SOB at Rest Cardiac (ROS): No: Chest Pain, Irregular Heart Rate, Lightheadedness, Palpitations, Syncope, Chest Tightness ABD/GI: No: Abdominal Distended, Constipated, Diarrhea, Nausea, Vomiting : No: Dysuria, Discharge, Frequency Musculoskeletal: No: Back Pain Integumentary: No: Change in Color, Rash Neurological: No: Headache, Seizure, Weakness Endocrine: No: Symptoms Reported Hematologic/Lymphatic: No: Symptoms Reported All Other Systems: Reviewed and Negative *Physical Exam - Vital Signs Last Vital Signs Temp Pulse Resp BP Pulse Ox 101.1 F H 127 H 16 170/102 H 97 12/03/19 16:50 12/03/19 16:50 12/03/19 16:50 12/03/19 16:50 12/03/19 16:50 - Physical Exam General Appearance: Yes: Nourished, Appropriately Dressed. No: Apparent Distress HEENT: positive: EOMI, Normal Voice. negative: Nasal Congestion Neck: positive: Trachea midline, Supple. negative: Tender Respiratory/Chest: positive: Wheezing. negative: Chest Tender, Lungs Clear (b/l wheeze present), Decreased Breath Sounds Cardiovascular: positive: Regular Rhythm, Tachycardia. negative: Regular Rate Gastrointestinal/Abdominal: positive: Normal Bowel Sounds, Soft. negative: Tender, Increased Bowel Sounds, Protuberent Musculoskeletal: positive: Normal Inspection. negative: CVA Tenderness Extremity: positive: Normal Capillary Refill, Normal Inspection, Normal Range of Motion. negative: Tender Integumentary: positive: Normal Color, Dry, Warm Neurologic: positive: Fully Oriented, Alert, Normal Response, Motor Strength 5/ ED Treatment Course - LABORATORY CBC & Chemistry Diagram: 12/03/19 17:15 12/03/19 17:15 Medical Decision Making - Medical Decision Making 12/03/19 17:12 supposed to start dialysis today. febrile this morning. and tachy. 12/03/19 19:03 59yo M ESRD, HTN. on dialysis, missed today. p/w fever + tachycardia today. labs = trop 0.24. EKG = flipped Ts in V4,5. gave [id number] clear XR. NO NAD CP, SOB. EKG in 10/2019 normal EKG at 1833: flipped T's in V4,5 w/ biphasic T and some elevation in V3 w/ reciprocal changes in 2,3,avF EKG @ 1855: tachy, still flipped T w/ biphasic Ts but less pronounced. send EKG? heparin? transfer? 12/03/19 20:24 presumed ACS -> heparin bolus 5000U + drip. given atorvastatin 80mg + brilenta as dual plt agent. Found to be tachycardic and hypertensive -> given 10mg labetalol Vanc Zosyn ordered in case this is sepsis. [facility] accepted patient to cardiology service. Discharge - Discharge Information Problems reviewed: Yes Clinical Impression/Diagnosis: ACS (acute coronary syndrome), Elevated troponin, Inverted T wave Condition: Stable Disposition: TRANSFER ACUTE CARE/OTHER HOSP - Follow up/Referral Referrals: Corby Avila MD [Primary Care Provider] - - Patient Discharge Instructions - Post Discharge Activity
[2019-12-03] MEDS ORDERED: ACETAMINOPHEN 325 MG TABLET (FP) PO ONE (18:03)
[2019-12-03 18:05] LABS: BASO % 0.6 % (0-2.0); EOS % 0.5 % (0-4.5); HEMATOCRIT 33.9 % (35.4-49); HEMOGLOBIN 10.7 GM/dL (11.7-16.9); LYMPH % 6.4 % (8-40); MCH 21.4 pg (25.7-33.7); MCHC 31.7 g/dl (32.0-35.9); MEAN CELL VOLUME 67.4 fl (80-96); MEAN PLT VOLUME 8.6 fl (7.5-11.1); MONO % 6.8 % (3.8-10.2); NEUT % 85.7 % (42.8-82.8); PLATELET COUNT 141 K/MM3 (134-434); RBC 5.03 M/mm3 (4.00-5.60); RDW 17.8 % (11.9-15.9); WHITE BLOOD COUNT 8.8 K/mm3 (4.0-10.0)
[2019-12-03] MEDS ORDERED: ACETAMINOPHEN 325 MG TABLET (FP) ONE ×2 (18:06→19:53)
[2019-12-03 18:12] LABS: INR 0.97 (0.83-1.09); PROTHROMBIN TIME (PATIENT) 11.4 SEC (9.7-13.0)
[2019-12-03 18:15] LABS: ACTIVATED PTT 28.2 SECONDS (25.2-36.5)
[2019-12-03 18:23] LABS: ANISOCYTOSIS 1+; OVALOCYTE 1+; PLATELET ESTIMATE DECREASED; TARGET CELLS 2+; TEAR DROP CELLS FEW
[2019-12-03 18:26] LABS: ALBUMIN 4.1 g/dl (3.4-5.0); BILIRUBIN,TOTAL 0.7 mg/dL (0.2-1); BLOOD UREA NITROGEN 55.9 mg/dL (7-18); CALCIUM 9.4 mg/dL (8.5-10.1); POTASSIUM 4.6 mmol/L (3.5-5.1); TOT PROT 8.7 g/dl (6.4-8.2)
[2019-12-03 18:29] LABS: CREATININE 7.6 mg/dL (0.55-1.3)
[2019-12-03] MEDS ORDERED: ASPIRIN 81 MG CHEWABLE TABLETS PO ONE (18:40)
--- NOTE | 2019-12-03 18:46 | PDOC ---
Documentation entered by Daren Voss SCRIBE, acting as scribe for Rob Quintero MD. Rob Quintero MD: This documentation has been prepared by the Shanika stauffer Angel, SCRIBE, under my direction and personally reviewed by me in its entirety. I confirm that the documentation accurately reflects all work, treatment, procedures, and medical decision making performed by me. Attending Attestation - Resident Resident Name: Zbigniew Chong - ED Attending Attestation I have performed the following: I have examined & evaluated the patient, The case was reviewed & discussed with the resident, I agree w/resident's findings & plan, Exceptions are as noted - HPI HPI: 12/03/19 18:35 The patient is a 59 year old male with a significant past medical history of HTN, ESRD who was sent into the ED by with a fever and tachycardia since noon today. The patient notes some chills this morning but denies any other symptoms. He denies any SOB or chest pain. Denies cough. Denies N/V/D. Denies GONZALEZ/neck pain. - Physicial Exam PE: 12/03/19 18:47 See resident exam - Critical Care Time Total Critical Care Time: 60 Critical Care Statement: The care of this patient involved high complexity decision making to prevent further life threatening deterioration of the patient's condition and/or to evaluate & treat vital organ system(s) failure or risk of failure. - Medical Decision Making 12/03/19 18:47 59 M here with fevers. No other localizing symptoms. EKG shows new TWIs, biphasic T waves in V4-V5 Pt denies ever having CP/SOB [facility] STEMI pager activated Awaiting callback 12/03/19 19:29 No callback from [facility] STEMI pager activated [facility] transfer cancelled 12/03/19 19:[address] Bruce to [facility] 12/07/19 09:17 Spoke with provider at [facility] today, who reports pt had 90% occlusion of LAD. 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 Discharge - Discharge Information Problems reviewed: Yes Clinical Impression/Diagnosis: ACS (acute coronary syndrome), Elevated troponin, Inverted T wave, Sepsis Condition: Stable Disposition: TRANSFER ACUTE CARE/OTHER HOSP - Follow up/Referral Referrals: Corby Avila MD [Primary Care Provider] - - Patient Discharge Instructions - Post Discharge Activity
[2019-12-03 18:49] LABS: EPI CELLS 3 /uL (0-25.1); HYALINE CASTS 0 /uL (0-3.1); PH,URINE >= 9.0 (5.0-8.0); URINE APPEARANCE CLEAR; URINE BACTERIA 0 /uL (0-1359); URINE BILIRUBIN NEGATIVE (NEGATIVE); URINE COLOR YELLOW; URINE GLUCOSE (UA) NEGATIVE (NEGATIVE); URINE KETONE NEGATIVE (NEGATIVE); URINE LEUK ESTERASE NEGATIVE (NEGATIVE); URINE NITRITE NEGATIVE (NEGATIVE); URINE PROTEIN 3+ (NEGATIVE); URINE RBC 9 /uL (0-23.9); URINE UROBILINOGEN 0.2 mg/dL (0.2-1.0); URINE WBC 3 /uL (0-25.8)
[2019-12-03] MEDS ORDERED: ASPIRIN 81 MG CHEWABLE TABLETS ONE (18:51)
[2019-12-03 18:57] VITALS: TEMP 99.8
[2019-12-03] MEDS ORDERED: VANCOMYCIN 1 GM in D5W (PRE-DOCKED) 1,000 MG/250 ML IVPB ONE (19:01)
[2019-12-03] MEDS ORDERED: PIPERACILLIN/TAZOB 2.25 GM 2.25 GM in DEXTROSE 5%-WATER - 50 ML IVPB ONE (19:02)
[2019-12-03] MEDS ORDERED: PIPERACILLIN/TAZOB 2.25 GM 2.25 GM/50 ML BAG IVPB ONE (19:09)
[2019-12-03] MEDS ORDERED: LABETALOL HCL 5 MG/1 ML (100MG/20 ML VIAL) IVPUSH ONE (19:36)
[2019-12-03] MEDS ORDERED: ATORVASTATIN CA 80 MG TABLET (FP) PO ONE (19:37)
[2019-12-03] MEDS ORDERED: HEPARIN NA (PORCINE) 5,000 UNITS/ML 1ML VIAL IVPUSH STA (19:38)
[2019-12-03] MEDS ORDERED: HEPARIN NA (PORCINE) 5,000 UNITS/ML 1ML VIAL IVPUSH PRN ×2 (19:42)
[2019-12-03] MEDS ORDERED: HEPARIN - 25,000 UNIT in SODIUM CHLORIDE 495 ML IV SCH (19:45)
[2019-12-03] MEDS ORDERED: HEPARIN NA (PORCINE) 5,000 UNITS/ML 1ML VIAL ONE (19:53)
[2019-12-03] MEDS ORDERED: ATORVASTATIN CA 80 MG TABLET (FP) ONE (19:53)
[2019-12-03] MEDS ORDERED: VANCOMYCIN 1 GRAM (PRE-DOCKED) 1,000 MG/250 ML BAG IVPB ONE (19:53)
[2019-12-03 19:54] VITALS: BP 151/101; PULSE 104
--- OUTSIDE RECORDS SUMMARY | 2019-12-03 20:34 | XMS ---
:1960 Author Organization [facility] Care Team Providers Name Role Phone ADONAY RODRIGES Unavailable Unavailable CHASIDY ZAMUDIO Unavailable CHASIDY ZAMUDIO Unavailable Re-disclosure Warning The records that you are about to access may contain information from federally- assisted alcohol or drug abuse programs. If such information is present, then the following federally mandated warning applies: This information has been disclosed to you from records protected by federal confidentiality rules (42 CFR part 2). The federal rules prohibit you from making any further disclosure of this information unless further disclosure is expressly permitted by the written consent of the person to whom it pertains or as otherwise permitted by 42 CFR part 2. A general authorization for the release of medical or other information is NOT sufficient for this purpose. The Federal rules restrict any use of the information to criminally investigate or prosecute any alcohol or drug abuse patient.The records that you are about to access may contain highly sensitive health information, the redisclosure of which is protected by Article 27-F of the [facility] Public Health law. If you continue you may haveaccess to information: Regarding HIV / AIDS; Provided by facilities licensed or operated by the [facility] Office of Mental Health; or Provided by the [facility] Office for People With Developmental Disabilities. If such information is present, then the following [facility] mandated warning applies: This information has been disclosed to you from confidential records which are protected by state law. State law prohibits you from making any further disclosure of this information without the specific written consent of the person to whom it pertains, or as otherwise permitted by law. Any unauthorized further disclosure in violation of state law may result in a fine or usp sentence or both. A general authorization for the release of medical or other information is NOT sufficient authorization for further disclosure. Encounters Encounter Providers Location Date Indications Data Source(s ) Outpatient Attender: 12/02/2019 N18.6 [facility] ROGERIOLUIS, 06:00:00 AM Health Care DANIELAdmitter: EDT Corporati on ADONAY RODRIGESReferrer: ADONAY RODRIGES N18.6 Outpatient Attender: ANTELMO 09/24/2019 01:20:00 M18.6 [facility] DANIELAdmitter: EDT [facility] ANTELMOInDemand Interpreting DANIELReferrer: ADONAY RODRIGES M18.6 Attender: CHASIDY ZAMUDIO 09/03/2019 12:00:00 AM EDT [facility] ([facility]) Office Attender: CHASIDY ZAMUDIO 09/03/2019 12:00:00 AM EDT [facility] ([facility]) Office Attender: CHASIDY ZAMUDIO 08/27/2019 12:00:00 AM EDT [facility] ([facility]) Office Attender: CHASIDY ZAMUDIO 08/27/2019 12:00:00 AM EDT [facility] ([facility]) Office Insurance Providers Payer name Policy type Policy ID Covered Covered democrat's Policy P florencio / Coverage democrat ID relationship to [employer] ormation type alcantara ROBIN [id number] SP [id number] ESSENTIAL PLAN 1 2 ROBIN [id number] SP [id number] 500 ESSENTIAL PLAN 1 2 ROBIN [id number] SP [id number] 500 HEALTH NON [facility] [id number] [place] Problems, Conditions, and Diagnoses Code Display Name Description Problem Type Effective Data Sour ce(s) Dates S9 Strain of STRAIN OF Problem 09/03/[address] [facility] [address] unspecified UNSPECIFIED 12:00:00 AM [facility], muscle and tendon MUSCLE AND EDT PC) at ankle and foot TENDON AT ANKLE level, AND FOOT LEVEL, unspecified foot, UNSPECIFIED initial encounter FOOT, INITIAL ENCOUNTER S93.402S Sprain of SPRAIN OF Problem 08/27/[address] [facility] ([address] unspecified UNSPECIFIED 12:00:00 AM [facility], ligament of left LIGAMENT OF LEFT EDT PC ) ankle, sequela ANKLE, SEQUELA M79.672 Pain in left foot PAIN IN LEFT Problem 08/27/2019 [facility] N (St FOOT 12:00:00 AM [facility]) S93.402S Sprain of SPRAIN OF Problem 08/27/2019 [facility] ([address] unspecified UNSPECIFIED 12:00:00 AM [facility], ligament of left LIGAMENT OF LEFT EDT PC ) ankle, sequela ANKLE, SEQUELA M79.672 Pain in left foot PAIN IN LEFT Problem 08/27/2019 [facility] (St FOOT 12:00:00 AM [facility], [facility]T PC) Z76.82 Awaiting organ AWAITING ORGAN Diagnosis 12/02/2019 [facility] transplant status TRANSPLANT 06:00:00 AM [facility] EDT Care Corporati on N18.6 End stage renal END STAGE RENAL Diagnosis 12/02/2019 [facility] DISEASE 06:00:00 AM [facility] EDT Care Corporati on Surgeries/Procedures Procedure Description Date Indications Data Source(s) OFFICE OUTPATIENT NEW 09/03/2019 [facility] ([facility] 12:[facility]:00 AM [facility]) OFFICE OUTPATIENT NEW 08/27/2019 [facility] ([facility]ES 12:00:00 AM [facility]) OFFICE OUTPATIENT VISIT 08/27/2019 [facility] ([facility] 15 MINUTES 12:00:00 AM [facility]) Results ID Date Data Source [id number] 10/31/2019 01:53:00 PM EDT [facility] Name Value Range Interpretation Code Description Data Erendira rce(s) Supporting Document(s ) [facility] SARS-CoV-2 TMA PCR This lab was ordered by HUMPHREY MORGAN M. D. and reported by [facility]. ID Date Data Source [id number] 10/21/2019 12:46:00 PM EDT [facility] Name Value Range Interpretation Description Data Sup porting Code Source(s) Document(s ) SARS [facility] coronavirus 2 RNA This lab was ordered by [facility] and reported by [facility]. ID Date Data Source [id number] 10/13/2019 11:35:00 AM EDT [facility] Name Value Range Interpretation Description Data Sup porting Code Source(s) Document(s ) SARS [facility] coronavirus 2 RNA This lab was ordered by [facility] and reported by [facility]. Procedure Social History Code Duration Value Status Description Data Source(s ) Smoking 09/03/2019 Unknown if ever completed Unknown if ever [facility] ([facility] 12:00:00 AM EDT [facility]) Smoking 08/27/2019 Unknown if ever completed Unknown if ever [facility] ([facility] 12:00:00 AM EDT [facility])
[2019-12-03] MEDS ORDERED: TICAGRELOR 60 MG TABLET PO SCH (22:00)
--- NOTE | 2019-12-04 14:04 | EKG ---
Test Reason : Blood Pressure : / mmHG Vent. Rate : 094 BPM Atrial Rate : 094 BPM P-R Int : 122 ms QRS Dur : 078 ms QT Int : 344 ms P-R-T Axes : 075 035 059 degrees QTc Int : 430 ms NORMAL SINUS RHYTHM POSSIBLE LEFT ATRIAL ENLARGEMENT ANTEROSEPTAL INFARCT , AGE UNDETERMINED T WAVE ABNORMALITY, CONSIDER LATERAL ISCHEMIA ABNORMAL ECG WHEN COMPARED WITH ECG OF 21-OCT-2019 09:00, VENT. RATE HAS INCREASED BY 39 BPM ANTEROSEPTAL INFARCT IS NOW PRESENT T WAVE INVERSION NOW EVIDENT IN ANTEROLATERAL LEADS Confirmed by JOSEPH AMATO MD ([id number]) on 12/04/2019 2:04:23 PM Referred By: Confirmed By:JOSEPH AMATO MD
--- NOTE | 2019-12-09 11:45 | EKG ---
Test Reason : Blood Pressure : / mmHG Vent. Rate : 107 BPM Atrial Rate : 107 BPM P-R Int : 130 ms QRS Dur : 076 ms QT Int : 312 ms P-R-T Axes : 068 024 066 degrees QTc Int : 416 ms SINUS TACHYCARDIA POSSIBLE LEFT ATRIAL ENLARGEMENT SEPTAL INFARCT , AGE UNDETERMINED ABNORMAL ECG WHEN COMPARED WITH ECG OF 21-OCT-2019 09:00, VENT. RATE HAS INCREASED BY 52 BPM SEPTAL INFARCT IS NOW PRESENT ST NOW DEPRESSED IN LATERAL LEADS T WAVE INVERSION NOW EVIDENT IN ANTERIOR LEADS Confirmed by Nikolai Huntley ([id number]) on 12/09/2019 11:45:01 AM Referred By: Confirmed By:Nikolai Huntley
== END 2019-12-03 20:30 | disposition short-term general hospital (02) ==
LOC: JER 16:49
PROC: 3E033NZ Introduction of Analgesics, Hypnotics, Sedatives into Peripheral Vein, Percutaneous Approach (ICD-10-PCS; principal; 2019-12-03)
DX: I24.9 Acute ischemic heart disease, unspecified (principal); R79.1 Abnormal coagulation profile; R94.31 Abnormal electrocardiogram [ECG] [EKG]
CPT/HCPCS: 36415; 71045-TC-FY; 80053; 81003; 83605; 84484; 85025; 85610; 85730; 87040; 87086; 87186; 93005; 93010; 99285-25; J1644

== ENCOUNTER 2020-11-22 21:05 | Emergency (ER) | payer OTHER ==
[2020-11-22 21:09] VITALS: BP 134/83; PULSE 67; TEMP 98.6; BMI 21.6
== END 2020-11-22 23:35 | disposition home or self-care (01) ==
LOC: JER 21:05
DX: T82.898A Other specified complication of vascular prosthetic devices, implants and grafts, initial encounter (principal)
CPT/HCPCS: 71046-TC-FY; 99282-25